=== PATIENT | female | born 2000 | race African-American/Black ===

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

== ENCOUNTER 2022-07-11 11:20 | Emergency (ER) | payer OTHER ==
[~2022-07-11] VITALS: Ht 162.6 cm; Wt 97.0 kg
[2022-07-11 11:33] VITALS: BP 118/71
[2022-07-11] MEDS ORDERED: ONDANSETRON 4MG ODT PO ONE (12:45)
[2022-07-11] MEDS ORDERED: ACETAMINOPHEN 325MG TABLET PO ONE (12:45)
[2022-07-11] MEDS ORDERED: DEXAMETHASONE 4MG TABLET PO ONE (12:45)
[2022-07-11] MEDS ORDERED: IBUPROFEN 400MG TABLET PO ONE (12:45)
[2022-07-11] MEDS ORDERED: IBUP-2028 MT (15:17)
[2022-07-11] MEDS ORDERED: TOPUD PO (15:17)
== END 2022-07-11 16:49 | disposition home or self-care (01) ==
LOC: ER 11:20
DX: J02.9 Acute pharyngitis, unspecified (principal); J45.909 Unspecified asthma, uncomplicated; F12.10 Cannabis abuse, uncomplicated; Z20.822 Contact with and (suspected) exposure to COVID-19
CPT/HCPCS: 81025; 87070; 87426; 87430; 87804; 99284; C9803; J8540; Q0162